=== PATIENT | male | born 1980 ===

== ENCOUNTER 2024-06-09 15:09 | Inpatient (IN) | payer OTHER ==
[~2024-06-09] VITALS: Ht 193 cm; Wt 143.6 kg
[2024-06-09 15:45] LABS: BASOPHILS ABSOLUTE AUTO 0.04 K/mm3 (0.00-0.23); BASOPHILS PERCENT AUTO 0 % (0-2); EOSINOPHILS ABSOLUTE AUTO 0.02 K/mm3 (0.00-0.68); EOSINOPHILS PERCENT AUTO 0 % (0-6); Hematocrit 45.7 % (37.0-53.0); Hemoglobin 15.7 g/dL (13.5-17.5); IMMATURE GRAN ABSOLUTE AUTO 0.05 K/mm3 (0.00-0.10); IMMATURE GRAN PERCENT AUTO 0 % (0-1); LYMPHOCYTES ABSOLUTE AUTO 1.93 K/mm3 (0.84-5.20); LYMPHOCYTES PERCENT AUTO 13 % (21-46); MONOCYTES ABSOLUTE AUTO 1.24 K/mm3 (0.16-1.47); MONOCYTES PERCENT AUTO 8 % (4-13); Mean Corpuscular HGB Conc 34.4 g/dL (31.5-36.5); Mean Corpuscular Volume 84 fL (80-100); Mean Platelet Volume 12.2 fL (9.1-12.4); NEUTROPHILS ABSOLUTE AUTO 11.42 K/mm3 (1.96-9.15); NEUTROPHILS PERCENT AUTO 78 % (41-73); Platelet Count 202 K/mm3 (150-400); RDW Coefficient Variation 12.1 % (11.7-14.2); RDW Standard Deviation 37.1 fL (35.1-46.3); Red Blood Cell Count 5.42 M/mm3 (4.30-5.90)
[2024-06-09 16:04] LABS: Bilirubin, Total 1.4 mg/dL (0.1-1.0); Bun/Creatinine Ratio 10.4 (12.0-20.0); Calcium, Blood 9.3 mg/dL (8.5-10.1); Creatinine, Blood 1.35 mg/dL (0.60-1.20); Globulin, Blood 4.2 g/dL (2.2-4.0); Total Protein, Blood 8.2 g/dL (6.4-8.2)
[2024-06-09 16:23] LABS: Source, Urine Voided
[2024-06-09 16:27] LABS: Appearance, Urine Clear (Clear); Bilirubin, Urine Neg (Neg); Blood, Urine Neg (Neg); Color, Urine Yellow (P-Yellow); Glucose Qualitative, Urine Neg (Neg); Ketones, Urine Neg (Neg); Leukocyte Esterase, Urine Neg (Neg); Nitrite, Urine Neg (Neg); Protein, Urine 1+ (Neg); Specific Gravity, Urine 1.015 (1.003-1.022); Urobilinogen, Urine NORM (Normal)
[2024-06-09] MEDS ORDERED: LevoFLOXacin 500MG/D5W 100ML 100 ML IV ONE (19:30)
[2024-06-09] MEDS ORDERED: MetroNIDAZOLE 500MG/NS 100 ml 100 ML IV ONE (19:30)
[2024-06-09] MEDS ORDERED: Ondansetron HCl 2 MG / ML 2ML Vial IV PRN (19:35)
[2024-06-09] MEDS ORDERED: Ciprofloxacin 400MG/D5 200ML 200 ML IV ONE (19:40)
[2024-06-09] MEDS ORDERED: NS 1,000 ML IV ONE (19:45)
[2024-06-09] MEDS ORDERED: NS 1,000 ML IV SCH (20:45)
[2024-06-09] MEDS ORDERED: Lactobacil 2-S.Thermo-Bifido 1 1 Cap PO SCH (21:00)
[2024-06-09 21:24] VITALS: BP 141/84
[2024-06-09] MEDS ORDERED: OxyCODONE 5 mg/Acetamin 325 mg TABLET PO PRN (22:00)
[2024-06-10 03:36] VITALS: BP 128/72
[2024-06-10 04:52] LABS: Hematocrit 41.6 % (37.0-53.0); Hemoglobin 13.8 g/dL (13.5-17.5); Mean Corpuscular HGB 28.6 pg (26.0-34.0); Mean Corpuscular HGB Conc 33.2 g/dL (31.5-36.5); Mean Corpuscular Volume 86 fL (80-100); Mean Platelet Volume 12.3 fL (9.1-12.4); Platelet Count 145 K/mm3 (150-400); RDW Coefficient Variation 12.1 % (11.7-14.2); RDW Standard Deviation 38.5 fL (35.1-46.3); Red Blood Cell Count 4.83 M/mm3 (4.30-5.90); White Blood Cell Count 9.04 K/mm3 (4.00-11.30)
[2024-06-10 05:18] LABS: Bun/Creatinine Ratio 12.7 (12.0-20.0); Calcium, Blood 8.3 mg/dL (8.5-10.1); Creatinine, Blood 0.95 mg/dL (0.60-1.20); Magnesium, Blood 2.2 mg/dL (1.6-2.4)
--- NOTE | 2024-06-10 06:01 | NUR ---
SHIFT SUMMARY NOC PT A/O X 4. PLEASANT AND COOPERATIVE WITH CARE. VSS. ADMIT FOR DIVERTICULITIS. PT HAS GEN SURGERY CONSULT CALLED IN FOR DR BUSTILLO TODAY. PT HAD ONE C/O OF 8/10 PAIN AND GIVEN PERCOCET X 1 FOR RELIEF. PT RECEIVING IV ABX AND NS INFUSING @ 100 ML/HR. PT CURRENTLY RESTING WITH BED IN LOWEST POSITION, AND CALL LIGHT WITHIN REACH.
[2024-06-10] MEDS ORDERED: MetroNIDAZOLE 500MG/NS 100 ml 100 ML IV SCH (07:00)
[2024-06-10 08:03] VITALS: BP 119/77
[2024-06-10] MEDS ORDERED: Ciprofloxacin 400MG/D5 200ML 200 ML IV SCH (09:00)
[2024-06-10] MEDS ORDERED: Piperacillin/Tazobactam Sod 3.375 GM in NS 100 ML IV SCH (12:00)
[2024-06-10 17:24] VITALS: BP 129/90
--- NOTE | 2024-06-10 19:02 | NUR ---
SUMMARY- AAOX4. IND IN ROOM. PAIN WELL CONTROLLED WITH EMAR PAIN MEDS. PT TOLERATED CLEARS. PT DENIES NAUSEA THIS SHIFT. ON RA.
[2024-06-10 20:03] VITALS: BP 164/98
[2024-06-10] MEDS ORDERED: Docusate Sodium 100 MG Cap PO SCH (21:00)
[2024-06-11 03:30] VITALS: BP 108/58
--- NOTE | 2024-06-11 06:08 | NUR ---
SHIFT SUMMARY: Pt is admitted for acute diverticulitis and is a full code. Is alert and able to make needs known. ADLs have been IND. denies pain or discomfort when asked.
[2024-06-11 07:20] LABS: BASOPHILS ABSOLUTE AUTO 0.02 K/mm3 (0.00-0.23); BASOPHILS PERCENT AUTO 0 % (0-2); EOSINOPHILS ABSOLUTE AUTO 0.07 K/mm3 (0.00-0.68); EOSINOPHILS PERCENT AUTO 1 % (0-6); Hematocrit 38.7 % (37.0-53.0); Hemoglobin 13.2 g/dL (13.5-17.5); IMMATURE GRAN ABSOLUTE AUTO 0.01 K/mm3 (0.00-0.10); IMMATURE GRAN PERCENT AUTO 0 % (0-1); LYMPHOCYTES ABSOLUTE AUTO 1.52 K/mm3 (0.84-5.20); LYMPHOCYTES PERCENT AUTO 24 % (21-46); MONOCYTES ABSOLUTE AUTO 0.57 K/mm3 (0.16-1.47); MONOCYTES PERCENT AUTO 9 % (4-13); Mean Corpuscular HGB Conc 34.1 g/dL (31.5-36.5); Mean Corpuscular Volume 85 fL (80-100); Mean Platelet Volume 11.5 fL (9.1-12.4); NEUTROPHILS ABSOLUTE AUTO 4.27 K/mm3 (1.96-9.15); NEUTROPHILS PERCENT AUTO 66 % (41-73); Platelet Count 151 K/mm3 (150-400); RDW Coefficient Variation 11.9 % (11.7-14.2); RDW Standard Deviation 37.1 fL (35.1-46.3); Red Blood Cell Count 4.55 M/mm3 (4.30-5.90); White Blood Cell Count 6.46 K/mm3 (4.00-11.30)
[2024-06-11 07:32] LABS: Bun/Creatinine Ratio 8.6 (12.0-20.0); Calcium, Blood 8.6 mg/dL (8.5-10.1); Creatinine, Blood 0.93 mg/dL (0.60-1.20)
[2024-06-11 07:52] VITALS: BP 131/77
[2024-06-11 15:36] VITALS: BP 123/76
--- NOTE | 2024-06-11 18:37 | NUR ---
1836- TELEPHONE VERBAL FROM [facility] TO ORDER 25MG BENEDRYL TABLET NIGHTLY FOR SLEEP.
[2024-06-11 20:28] VITALS: BP 123/85
[2024-06-11] MEDS ORDERED: DiphenhydrAMINE HCL 25 MG Cap PO SCH (21:00)
--- NOTE | 2024-06-12 04:47 | NUR ---
SHIFT SUMMARY; PATIENT SLEPT IN LONG INTERVALS. DID MEDICATE ONCE FOR ABD PAIN.VSS.
[2024-06-12 05:15] LABS: BASOPHILS ABSOLUTE AUTO 0.04 K/mm3 (0.00-0.23); BASOPHILS PERCENT AUTO 1 % (0-2); EOSINOPHILS ABSOLUTE AUTO 0.11 K/mm3 (0.00-0.68); EOSINOPHILS PERCENT AUTO 2 % (0-6); Hematocrit 40.6 % (37.0-53.0); Hemoglobin 13.8 g/dL (13.5-17.5); IMMATURE GRAN ABSOLUTE AUTO 0.01 K/mm3 (0.00-0.10); IMMATURE GRAN PERCENT AUTO 0 % (0-1); LYMPHOCYTES ABSOLUTE AUTO 1.62 K/mm3 (0.84-5.20); LYMPHOCYTES PERCENT AUTO 27 % (21-46); MONOCYTES ABSOLUTE AUTO 0.52 K/mm3 (0.16-1.47); MONOCYTES PERCENT AUTO 9 % (4-13); Mean Corpuscular HGB 29.1 pg (26.0-34.0); Mean Corpuscular Volume 86 fL (80-100); Mean Platelet Volume 11.8 fL (9.1-12.4); NEUTROPHILS ABSOLUTE AUTO 3.71 K/mm3 (1.96-9.15); NEUTROPHILS PERCENT AUTO 62 % (41-73); Platelet Count 166 K/mm3 (150-400); RDW Coefficient Variation 11.8 % (11.7-14.2); RDW Standard Deviation 36.8 fL (35.1-46.3); Red Blood Cell Count 4.75 M/mm3 (4.30-5.90); White Blood Cell Count 6.01 K/mm3 (4.00-11.30)
[2024-06-12 07:43] VITALS: BP 123/80
[2024-06-12] MEDS ORDERED: BENADRYL25 MG PO (13:07)
[2024-06-12] MEDS ORDERED: Colace100 MG PO (13:08)
[2024-06-12] MEDS ORDERED: Percocet 5-3251 EACH PO (13:10)
[2024-06-12] MEDS ORDERED: AMOCLA875 PO (13:11)
[2024-06-12 16:19] VITALS: BP 142/86
--- NOTE | 2024-06-12 17:50 | NUR ---
1734-DC PT LEFT IN STABLE CONDITION WITH ALL BELONGINGS. PT GIVEN HARD SCRIPT AND COPY IN CHART. PT'S TOOK PT HOME.
== END 2024-06-12 17:34 | disposition home or self-care (01) | DRG 392 ==
LOC: ER 15:09 → MEDS 19:34
PROVIDERS: Emergency Medicine; Internal Medicine; Nurse Practitioner Acute Care; Surgery; ADMIT Internal Medicine
DX: K57.20 Diverticulitis of large intestine with perforation and abscess without bleeding (principal); E66.9 Obesity, unspecified; Z79.899 Other long term (current) drug therapy; Z79.891 Long term (current) use of opiate analgesic; Z88.0 Allergy status to penicillin; Z68.34 Body mass index [BMI] 34.0-34.9, adult; Z79.2 Long term (current) use of antibiotics
CPT/HCPCS: 36415; 74177; 80048; 80053; 83735; 85025; 85027; 85651; 86140; 99285-25; A9270; J0744; J2543; J7030; Q9967